=== PATIENT | female | born 1950 ===

== ENCOUNTER 2019-07-05 05:10 | Day surgery (SDC) | payer OTHER ==
[~2019-07-05 05:10] MED LIST: CATAPRES0.1 MG PO; FOSAMAX70 MG; HYDROCHLORIC AC25 ML; TOPROL XL50 M1 PO; VITAMINA D3; ZANTAC300 MG PO
[2019-07-05] MEDS ORDERED: PERCOCET 5-3251 EACH PO (08:44)
== END 2019-07-05 11:30 | disposition home or self-care (01) ==
LOC: CIR.AMB 05:10
DX: E21.0 Primary hyperparathyroidism (principal); D35.1 Benign neoplasm of parathyroid gland